=== PATIENT | male | born 1955 | race Caucasian/White ===

== ENCOUNTER → 2024-04-03 | Outpatient (CLI) | payer MEDICARE, BC ==
--- NOTE | 2024-04-03 14:27 | CT ---
EXAMINATION TYPE: CT sinus wo con DATE OF EXAM: 04/03/2024 12:16 PM COMPARISON: None. CLINICAL INDICATION: Male, 68 years old with history of J32.9 CHRONIC SINUSITIS, UNSPECI, chronic sin usitis, TECHNIQUE: Noncontrast axial views of the paranasal sinuses were obtained. Coronal and sagittal refor matted images were obtained from the axial views for evaluation of nasal cavity, osteomeatal complex and skull base integrity. CT DLP: 648.7 mGycm, Automated exposure control for dose reduction was used. FINDINGS: PARANASAL SINUSES: There is trace mucosal thickening in the ethmoid air cells. Trace mucosal thickening floor of the left maxillary sinus. Frontal and sphenoid sinuses well pneumatized. There is no air-fluid level. Reactive mari- osteogenesis is not seen. There is no destruction of the osseous masters of the paranasal sinuses. THE NASAL CAVITY: The osteomeatal complexes are patent. There is leftward deviation of the anterior nasal septum and rightward deviation of the posterior rob al septum. The imaged brain and orbits are normal in appearance. Mastoid air cells and middle ear cavities are well pneumatized. Reformatted images confirm above findings. IMPRESSION: 1. Trace mucosal thickening ethmoid air cells and floor of the left maxillary sinus. 2. Undulating nasal septum. [facility], , 04/03/2024 2:24 PM
== END | disposition home or self-care (01) ==
LOC: RADCTMAIN 10:49
PROVIDERS: ATTEND Otolaryngology
DX: J32.0 Chronic maxillary sinusitis (principal); J34.89 Other specified disorders of nose and nasal sinuses
CPT/HCPCS: 70486

== ENCOUNTER → 2024-05-28 | Outpatient (CLI) | payer MEDICARE, BC ==
--- NOTE | 2024-05-28 10:28 | FL ---
EXAMINATION TYPE: FL barium swallow DATE OF EXAM: 05/28/2024 COMPARISON: None CLINICAL INDICATION: Male, 68 years old with history of G20 Parkinson's disease R13.10 Dysphagia; [facility] , TECHNIQUE: A double contrast esophagram is performed utilizing air and barium. A total of 30 second s of fluoroscopic time was utilized during procedure and 35 images obtained. Total dose area product (DAP) in uGy*m?, mGy*cm? (or similar) Not provided. COMPARISON: None FINDINGS: The esophagus shows normal motility and emptying into the stomach. No evidence of hiatal h ernia or stricture noted. No significant gastroesophageal reflux was seen during real time performanc e of this study. IMPRESSION: No significant abnormality is seen. [facility], , 05/28/2024 10:26 AM
== END | disposition home or self-care (01) ==
LOC: RADFLMAIN 09:38
PROVIDERS: ATTEND Psychiatry & Neurology Neurology
DX: G20.C Parkinsonism, unspecified (principal); R13.10 Dysphagia, unspecified
CPT/HCPCS: 74220

== ENCOUNTER 2024-05-31 08:00 | Day surgery (SDC) | payer MEDICARE, BC ==
[~2024-05-31 08:00] MED LIST: LACTATED RINGERS 1,000 ML IV SCH
[2024-05-31 08:26] VITALS: TEMP 97.7
[2024-05-31 08:39] LABS: Glucose,Whole Blood 216 mg/dL (70-110)
[2024-05-31] MEDS: LACTATED RINGERS 1,000 ML IV ONE (08:43)
[2024-05-31] MEDS ORDERED: PROPOFOL 10 MG/ML 20 ML VIAL IV ONE (08:45)
[2024-05-31] MEDS ORDERED: MIDAZOLAM 2 MG/2 ML VIAL ONE (08:45)
[2024-05-31] MEDS ORDERED: KETAMINE HCL IN 0.9 % NACL 50 MG/5 ML SYRINGE ONE (08:45)
--- NOTE | 2024-05-31 09:02 | P.PCN ---
Date of Procedure: 05/31/24 Procedure(s) Performed: BRIEF HISTORY: Patient is a 68-year-old pleasant white man scheduled for an elective colonoscopy as a part of screening for colon cancer. PROCEDURE PERFORMED: Colonoscopy. PREOPERATIVE DIAGNOSIS: Screening for colon cancer. IV sedation per Anesthesia. PROCEDURE: After informed consent was obtained, the patient, was brought into the endoscopy unit. IV sedation was administered by Anesthesia under continuous monitoring. Digital rectal examination was normal. Initially the Olympus CF-160 flexible video colonoscope was then inserted in the rectum, gradually advanced into the cecum without any difficulty. Careful examination was performed as the scope was gradually being withdrawn. Ileocecal valve and the appendiceal orifice were visualized and appeared normal. Prep was excellent. Mucosa of the cecum, ascending colon, transverse colon, descending colon, sigmoid colon, and rectum appeared normal. Retroflexion was performed in the rectum and no lesions were seen. The patient tolerated the procedure well. IMPRESSION: Normal-appearing colon from rectum to cecum with no evidence of colorectal neoplasia. RECOMMENDATIONS: Findings of this examination were discussed with the patient as well as his family. He was advised to have repeat screening colonoscopy in 10 years.
[2024-05-31 09:15] VITALS: RESP 14
[2024-05-31 09:28] VITALS: BP 146/84; PULSE 70
== END 2024-05-31 09:50 | disposition home or self-care (01) ==
LOC: ORWHC2ENDO 08:00
PROVIDERS: ATTEND Internal Medicine Gastroenterology
DX: Z12.11 Encounter for screening for malignant neoplasm of colon (principal); I10 Essential (primary) hypertension; E78.5 Hyperlipidemia, unspecified; E11.9 Type 2 diabetes mellitus without complications; E66.01 Morbid (severe) obesity due to excess calories; G20.A1 Parkinson's disease without dyskinesia, without mention of fluctuations; G47.33 Obstructive sleep apnea (adult) (pediatric); Z68.42 Body mass index [BMI] 45.0-49.9, adult; Z89.521 Acquired absence of right knee; Z79.82 Long term (current) use of aspirin; Z79.84 Long term (current) use of oral hypoglycemic drugs; Z79.899 Other long term (current) drug therapy
CPT/HCPCS: J2250; J2704; G0121